=== PATIENT | female | born 1995 | race Caucasian/White ===

== ENCOUNTER 2021-04-02 02:25 | Inpatient (IN) | payer OTHER ==
[2021-04-02] MEDS ORDERED: BUTORPHANOL TARTRATE 2 MG/ML VIAL IVPB ONE (02:50)
[2021-04-02] MEDS ORDERED: PROMETHAZINE HCL 25 MG/1 ML VIAL IVPB ONE (02:50)
[2021-04-02] MEDS ORDERED: DEXTROSE 5%-LACTATED RINGERS 1,000 ML IV SCH (04:00)
[2021-04-02 04:19] LABS: BASO % 0.4 % (0-2.0); EOS % 0.2 % (0-4.5); HEMATOCRIT 38.6 % (32.4-45.2); HEMOGLOBIN 13.4 GM/dL (10.7-15.3); LYMPH % 12.1 % (8-40); MCH 31.9 pg (25.7-33.7); MCHC 34.8 g/dl (32.0-36.0); MEAN CELL VOLUME 91.6 fl (80-96); MEAN PLT VOLUME 9.1 fl (7.5-11.1); MONO % 4.9 % (3.8-10.2); NEUT % 82.4 % (42.8-82.8); PLATELET COUNT 250 10^3/uL (134-434); RBC 4.21 M/mm3 (3.60-5.2); RDW 13.8 % (11.6-15.6); WHITE BLOOD COUNT 10.1 K/mm3 (4.0-10.0)
[2021-04-02 04:36] LABS: INR 0.9 (0.83-1.09); PROTHROMBIN TIME (PATIENT) 10.3 SEC (9.7-13.0)
[2021-04-02 04:37] VITALS: BMI 30.9
[2021-04-02 04:39] LABS: ACTIVATED PTT 26.9 SECONDS (25.2-36.5)
[2021-04-02 04:40] LABS: CALCIUM 9.2 mg/dL (8.5-10.1)
[2021-04-02 04:41] LABS: BLOOD UREA NITROGEN 13.6 mg/dL (7-18)
[2021-04-02 04:44] LABS: CREATININE 0.8 mg/dL (0.55-1.3)
[2021-04-02 05:35] LABS: HIV INTERPRETATION NEGATIVE (NEGATIVE)
[2021-04-02] MEDS ORDERED: NALOXONE HCL 0.4 MG/ML VIAL IVPUSH PRN (10:18)
[2021-04-02] MEDS ORDERED: BUPIVACAINE HCL/PF 0.25% (2.5MG/ML) 10 ML VIAL ONE (10:19)
[2021-04-02] MEDS ORDERED: FENTANYL/BUPIVACAINE/NS/PF - PCEA - 50 ML DISP.SYRIN EP ONE ×4 (10:44→21:52)
[2021-04-02] MEDS: FENTANYL/BUPIVACAINE/NS/PF - PCEA - 50 ML DISP.SYRIN EP SCH (10:50)
[2021-04-02] MEDS ORDERED: ELECTROLYTE-148 SOLN 1,000 ML IV SCH (11:30)
[2021-04-02] MEDS ORDERED: OXYTOCIN 30 UNITS in 0.9% NS 30 UNIT/500 ML INFUS.BAG IVPB SCH (13:00)
[2021-04-02] MEDS ORDERED: OXYTOCIN 30 UNITS in 0.9% NS 30 UNIT/500 ML INFUS.BAG IVPB ONE (13:35)
[2021-04-02] MEDS ORDERED: ceFAZolin SODIUM 1 GM VIAL ONE (22:33)
[2021-04-02] MEDS ORDERED: OXYTOCIN 10 UNITS/ML VIAL ONE (22:33)
[2021-04-02] MEDS ORDERED: ePHEDrine SULFATE 50 MG/1 ML AMPULE ONE (22:34)
[2021-04-02] MEDS ORDERED: PHENYLEPHRINE HCL 10 MG/1 ML SINGLE DOSE VIAL ONE (22:46)
[2021-04-02] MEDS ORDERED: ONDANSETRON 4 MG/2 ML VIAL ONE (23:10)
[2021-04-02] MEDS ORDERED: DEXAMETHASONE SOD PHOSPHATE 4 MG/1 ML VIAL ONE (23:10)
[2021-04-02 23:30] LABS: CORD HCO3 25.1 mmHg (20-29); CORD PCO2 46.7 mmHg (30-78); CORD pH 7.348 (7.14-7.44)
[2021-04-02 23:31] LABS: CORD HCO3 25.2 mmHg (20-29); CORD PCO2 60.5 mmHg (30-78); CORD pH 7.237 (7.14-7.44)
[2021-04-02] MEDS ORDERED: OXYTOCIN 20 UNITS in 0.9% NS 20 UNIT/1,000 ML INFUS.BAG IV SCH (23:45)
[2021-04-02] MEDS ORDERED: WITCH HAZEL 50% (TUCKS) 40 PAD/JAR PAD TP PRN (23:48)
[2021-04-02] MEDS ORDERED: IBUPROFEN 800 MG/8 ML IJ IVPB PRN (23:48)
[2021-04-02] MEDS ORDERED: BENZOCAINE 28 GM HEMORRHOIDAL OINTMENT TP PRN (23:48)
[2021-04-02] MEDS ORDERED: METHYLERGONOVINE MALEATE 0.2 MG/1 ML AMP IM PRN (23:48)
[2021-04-02] MEDS ORDERED: ACETAMINOPHEN 325 MG TABLET (FP) PO PRN (23:48)
[2021-04-02] MEDS ORDERED: BENZOCAINE 20% 57 GM BOTTLE TP PRN (23:48)
[2021-04-03] MEDS ORDERED: OXYTOCIN 20 UNITS in 0.9% NS 20 UNIT/1,000 ML INFUS.BAG IV ONE (00:57)
[2021-04-03 07:46] LABS: BASO % 0.2 % (0-2.0); EOS % 0.1 % (0-4.5); HEMATOCRIT 30.4 % (32.4-45.2); HEMOGLOBIN 10.2 GM/dL (10.7-15.3); LYMPH % 9.8 % (8-40); MCH 31.4 pg (25.7-33.7); MCHC 33.7 g/dl (32.0-36.0); MEAN CELL VOLUME 93.1 fl (80-96); MEAN PLT VOLUME 8.8 fl (7.5-11.1); NEUT % 82.9 % (42.8-82.8); PLATELET COUNT 200 10^3/uL (134-434); RBC 3.26 M/mm3 (3.60-5.2); RDW 13.7 % (11.6-15.6); WHITE BLOOD COUNT 11.6 K/mm3 (4.0-10.0)
[2021-04-03 08:12] LABS: POC NITRAZINE POS
[2021-04-03] MEDS: PRENATAL VITAMINS W/ FOLIC ACID TABLET (FP) PO SCH (09:50)
[2021-04-03] MEDS: ENOXAPARIN NA (PORCINE) 40 MG/0.4 ML DISP.SYRIN SQ SCH (09:58)
[2021-04-03] MEDS ORDERED: oxyCODONE HCL 5 MG TABLET PO PRN ×2 (11:48)
[2021-04-03] MEDS: IBUPROFEN 600 MG TABLET (FP) PO PRN (13:51)
[2021-04-03] MEDS: SIMETHICONE 80 MG TAB.CHEW (FP) PO PRN (13:51)
[2021-04-03] MEDS: FENTANYL/BUPIVACAINE/NS/PF - PCEA - 50 ML DISP.SYRIN EP SCH (16:27)
[2021-04-03] MEDS: SENNOSIDES/DOCUSATE COMBO (SENNA PLUS) TABLET (UD) PO PRN (22:45)
[2021-04-03] MEDS ORDERED: BISACODYL 10 MG SUPP.RECT RC PRN (23:48)
[2021-04-04] MEDS: SIMETHICONE 80 MG TAB.CHEW (FP) PO PRN ×2 (03:01→20:27)
[2021-04-04] MEDS: ENOXAPARIN NA (PORCINE) 40 MG/0.4 ML DISP.SYRIN SQ SCH (10:16)
[2021-04-04] MEDS: PRENATAL VITAMINS W/ FOLIC ACID TABLET (FP) PO SCH (10:16)
[2021-04-04] MEDS: IBUPROFEN 600 MG TABLET (FP) PO PRN ×2 (14:38→20:28)
[2021-04-04] MEDS: SENNOSIDES/DOCUSATE COMBO (SENNA PLUS) TABLET (UD) PO PRN (20:27)
[2021-04-05 00:21] VITALS: TEMP 98.2
[2021-04-05] MEDS: SIMETHICONE 80 MG TAB.CHEW (FP) PO PRN (06:12)
[2021-04-05] MEDS: IBUPROFEN 600 MG TABLET (FP) PO PRN ×2 (06:12→09:49)
[2021-04-05 07:21] LABS: BASO % 0.6 % (0-2.0); EOS % 2.7 % (0-4.5); HEMATOCRIT 31.9 % (32.4-45.2); HEMOGLOBIN 10.9 GM/dL (10.7-15.3); LYMPH % 22.6 % (8-40); MCH 31.7 pg (25.7-33.7); MCHC 34.1 g/dl (32.0-36.0); MEAN PLT VOLUME 8.1 fl (7.5-11.1); MONO % 6.8 % (3.8-10.2); NEUT % 67.3 % (42.8-82.8); PLATELET COUNT 216 10^3/uL (134-434); RBC 3.44 M/mm3 (3.60-5.2); RDW 13.3 % (11.6-15.6); WHITE BLOOD COUNT 5.7 K/mm3 (4.0-10.0)
[2021-04-05 09:28] VITALS: BP 112/75; PULSE 83
[2021-04-05] MEDS: PRENATAL VITAMINS W/ FOLIC ACID TABLET (FP) PO SCH (09:50)
[2021-04-05] MEDS: ENOXAPARIN NA (PORCINE) 40 MG/0.4 ML DISP.SYRIN SQ SCH (09:50)
== END 2021-04-05 11:55 | disposition home or self-care (01) | DRG 788 ==
LOC: JLDR 02:25 → J3W 04-03 02:07
PROVIDERS: ADMIT Obstetrics & Gynecology; ATTEND Obstetrics & Gynecology
PROC: 10D00Z1 Extraction of Products of Conception, Low, Open Approach (ICD-10-PCS; principal; 2021-04-02)
DX: O62.1 Secondary uterine inertia (principal); O42.02 Full-term premature rupture of membranes, onset of labor within 24 hours of rupture; Z3A.39 39 weeks gestation of pregnancy; Z37.0 Single live birth
CPT/HCPCS: 36415; 36600; 80048; 82803; 83986-QW; 85025; 85610; 85730; 86762; 86780; 86850; 86900; 86901; 87340; 87389; 88307-TC; C9803-CS; U0003; U0005

== ENCOUNTER 2023-03-30 18:27 | Emergency (ER) | payer OTHER ==
[2023-03-30 18:32] VITALS: RESP 18; BMI 24.5
[2023-03-30 20:06] LABS: PH,URINE 6.5 (5.0-8.0); URINE APPEARANCE CLEAR; URINE BILIRUBIN NEGATIVE (NEGATIVE); URINE COLOR YELLOW; URINE GLUCOSE (UA) NEGATIVE (NEGATIVE); URINE KETONE NEGATIVE (NEGATIVE); URINE LEUK ESTERASE NEGATIVE (NEGATIVE); URINE NITRITE NEGATIVE (NEGATIVE); URINE PROTEIN NEGATIVE (NEGATIVE); URINE UROBILINOGEN 0.2 mg/dL (0.2-1.0)
[2023-03-30 21:31] VITALS: BP 104/56; PULSE 67; TEMP 98.8
[2023-03-30] MEDS ORDERED: ACETAMINOPHEN 500 MG TABLET (FP) PO ONE (22:11)
[2023-03-30] MEDS ORDERED: LACTATED RINGERS SOLUTION 1000 ML INFUS.BAG IV ONE (22:11)
[2023-03-30] MEDS ORDERED: ACETAMINOPHEN 325 MG TABLET (FP) ONE (22:13)
[2023-03-30 22:26] LABS: BASO % 0.9 % (0-2.0); EOS % 0.7 % (0-4.5); HEMOGLOBIN 12.3 GM/dL (10.7-15.3); LYMPH % 24.8 % (8-40); MCH 31.1 pg (25.7-33.7); MCHC 34.1 g/dl (32.0-36.0); MEAN PLT VOLUME 7.9 fl (7.5-11.1); NEUT % 67.6 % (42.8-82.8); PLATELET COUNT 261 10^3/uL (134-434); RBC 3.95 M/mm3 (3.60-5.2); RDW 13.1 % (11.6-15.6); WHITE BLOOD COUNT 7.9 K/mm3 (4.0-10.0)
[2023-03-30 23:07] LABS: BILIRUBIN,TOTAL 0.2 mg/dL (0.2-1); BLOOD UREA NITROGEN 9.6 mg/dL (7-18); CREATININE 0.5 mg/dL (0.55-1.3); MAGNESIUM 1.7 mg/dL (1.8-2.4); PHOSPHOROUS 4.1 mg/dL (2.5-4.9); POTASSIUM 3.5 mmol/L (3.5-5.1); TOT PROT 6.4 g/dl (6.4-8.2)
[2023-03-31 11:25] LABS: CREATININE, URINE RANDOM < 13.0 mg/dL (30-150)
== END 2023-03-30 23:54 | disposition home or self-care (01) ==
LOC: JER 18:27
DX: O26.892 Other specified pregnancy related conditions, second trimester (principal); R42 Dizziness and giddiness; H53.8 Other visual disturbances; Z3A.29 29 weeks gestation of pregnancy
CPT/HCPCS: 0241U-QW; 36415; 80053; 81003; 82570; 83735; 84100; 84156; 85025; 87086; 93005; 93010; 99284-25

== ENCOUNTER 2023-06-06 06:05 | Inpatient (IN) | payer OTHER ==
[2023-06-06] MEDS: ELECTROLYTE-148 SOLN 500 ML IV SCH (06:15)
[2023-06-06] MEDS: CITRIC ACID/SODIUM CITRATE 30 ML UNIT-DOSE CUP PO ONE (06:30)
[2023-06-06 07:30] VITALS: BMI 29.0
[2023-06-06] MEDS ORDERED: ACETAMINOPHEN 325 MG TABLET (FP) PO PRN ×2 (07:41→09:33)
[2023-06-06] MEDS ORDERED: ONDANSETRON 4 MG/2 ML VIAL IVPUSH PRN (07:41)
[2023-06-06] MEDS ORDERED: IBUPROFEN 600 MG TABLET (FP) PO PRN (07:41)
[2023-06-06] MEDS ORDERED: morphine SULFATE/PF 1 MG/2 ML (2cc Syringe - QUVA) ONE (07:53)
[2023-06-06] MEDS ORDERED: SODIUM CHLORIDE 0.9% P/F 10 ML VIAL IJ ONE ×2 (07:54)
[2023-06-06] MEDS ORDERED: PHENYLEPHRINE HCL 10 MG/1 ML SINGLE DOSE VIAL ONE (07:54)
[2023-06-06] MEDS ORDERED: ceFAZolin SODIUM 1 GM VIAL ONE (07:54)
[2023-06-06] MEDS: ELECTROLYTE-148 SOLN 1,000 ML IV SCH (08:00)
[2023-06-06] MEDS ORDERED: OXYTOCIN 10 UNITS/ML VIAL ONE (08:43)
[2023-06-06] MEDS ORDERED: METHYLERGONOVINE MALEATE 0.2 MG/1 ML AMP IM PRN (09:33)
[2023-06-06] MEDS ORDERED: WITCH HAZEL 50% (TUCKS) 40 PAD/JAR PAD TP PRN (09:33)
[2023-06-06] MEDS ORDERED: BENZOCAINE 20% 57 GM BOTTLE TP PRN (09:33)
[2023-06-06] MEDS ORDERED: SENNOSIDES/DOCUSATE COMBO (SENNA PLUS) TABLET (UD) PO PRN (09:33)
[2023-06-06] MEDS ORDERED: BENZOCAINE 28 GM HEMORRHOIDAL OINTMENT TP PRN (09:33)
[2023-06-06] MEDS ORDERED: OXYTOCIN 20 UNITS in 0.9% NS 20 UNIT/1,000 ML INFUS.BAG IV ONE (09:43)
[2023-06-06 09:52] LABS: CORD HCO3 23.4 mmHg (20-29); CORD pH 7.363 (7.14-7.44)
[2023-06-06 09:54] LABS: CORD HCO3 24.4 mmHg (20-29); CORD PCO2 47.9 mmHg (30-78); CORD pH 7.325 (7.14-7.44)
[2023-06-06] MEDS: OXYTOCIN 20 UNITS in 0.9% NS 20 UNIT/1,000 ML INFUS.BAG IV SCH (10:07)
[2023-06-06] MEDS: morphine SULFATE/PF 1 MG/2 ML (2cc Syringe - QUVA) EP ONE (10:07)
[2023-06-06 12:44] VITALS: RESP 18
[2023-06-06] MEDS: PRENATAL VITAMINS W/ FOLIC ACID TABLET (FP) PO SCH (12:58)
[2023-06-06] MEDS: IBUPROFEN 800 MG/8 ML IJ IVPB PRN (20:15)
[2023-06-06] MEDS ORDERED: oxyCODONE HCL 5 MG TABLET PO PRN ×2 (21:33)
[2023-06-07 09:15] LABS: BASO % 0.3 % (0-2.0); EOS % 1.2 % (0-4.5); HEMATOCRIT 32.7 % (32.4-45.2); HEMOGLOBIN 10.9 GM/dL (10.7-15.3); LYMPH % 15.1 % (8-40); MCH 29.9 pg (25.7-33.7); MCHC 33.2 g/dl (32.0-36.0); MONO % 5.3 % (3.8-10.2); NEUT % 78.1 % (42.8-82.8); PLATELET COUNT 199 10^3/uL (134-434); RBC 3.64 M/mm3 (3.60-5.2); RDW 13.4 % (11.6-15.6); WHITE BLOOD COUNT 6.9 K/mm3 (4.0-10.0)
[2023-06-07] MEDS ORDERED: BISACODYL 10 MG SUPP.RECT RC PRN (09:33)
[2023-06-07] MEDS: IBUPROFEN 600 MG TABLET (FP) PO PRN (09:57)
[2023-06-07] MEDS: SIMETHICONE 80 MG TAB.CHEW (FP) PO PRN (09:58)
[2023-06-08 10:23] VITALS: BP 115/73; PULSE 71; TEMP 98
== END 2023-06-08 12:37 | disposition home or self-care (01) | DRG 788 ==
LOC: JLDR 06:05 → J3W 12:00
PROVIDERS: ADMIT Obstetrics & Gynecology; ATTEND Obstetrics & Gynecology
PROC: 10D00Z1 Extraction of Products of Conception, Low, Open Approach (ICD-10-PCS; principal; 2023-06-06)
DX: O34.219 Maternal care for unspecified type scar from previous cesarean delivery (principal); Z3A.39 39 weeks gestation of pregnancy; Z37.0 Single live birth
CPT/HCPCS: 36415; 36600; 71046-TC-FY; 82803; 85025; 88307-TC; 94010